=== PATIENT | female | born 1985 | race Caucasian/White ===

== ENCOUNTER 2018-01-24 14:29 | Outpatient (CLI) | payer BC ==
--- NOTE | 2018-01-24 15:53 | ULT ---
PELVIC ULTRASOUND: 01/24/18 COMPARISON: None. HISTORY: Vaginal bleeding. TECHNIQUE: Multiplanar rico scale and color doppler images were obtained in a transabdominal and transvaginal pe lvic ultrasound. Spectral analysis of the doppler waveforms of the ovaries were performed. FINDINGS: There appears to be a gestational sac within a retroverted uterus. This contains a pole with cr own-rump length of 0.48 cm. This estimates gestational age at 6 weeks, 1 day. A heart rate was also detected at 122 beats per minute. There is a small amount of free fluid in the cul-de-sac. Both ovaries are normal in size and appearan ce and demonstrate normal internal flow. A corpus luteum is seen in the left ovary measuring 2.2 cm i n size. IMPRESSION: Single live intrauterine with estimated age of 6 weeks, 1 day. POS: [facility]
== END 2018-01-24 14:30 | disposition home or self-care (01) ==
LOC: ULT 14:29
DX: N93.9 Abnormal uterine and vaginal bleeding, unspecified (principal); Z3A.01 Less than 8 weeks gestation of pregnancy
CPT/HCPCS: 76856

== ENCOUNTER 2023-05-30 09:56 | Outpatient (CLI) | payer OTHER | END 2023-05-30 09:57 | disposition home or self-care (01) | LOC: BICMAMMO 09:56 | PROVIDERS: ATTEND Obstetrics & Gynecology | DX: N63.10 Unspecified lump in the right breast, unspecified quadrant (principal) | CPT/HCPCS: 77066; G0279 ==

== ENCOUNTER 2024-03-24 11:27 | Emergency (ER) | payer OTHER ==
[~2024-03-24 11:27] MED LIST: Iopamidol-370 76% 500 ML MDV (1 ML CHARGE) ONE
[2024-03-24 12:32] LABS: #Basophils 0.03 10x3/uL (0.0-0.2); %Basophils 0.3 % (0.0-1.0); %Eosinophils 1.1 % (0.0-10.0); %Lymphocytes 14.6 % (21.0-51.0); %Monocytes 3.8 % (0.0-10.0); %Neutrophils 79.9 % (42.0-75.0); Hematocrit 42.3 % (36.0-47.0); Hemoglobin 14.5 g/dL (12.0-16.0); Mean Corpuscular HGB CONC 34.3 g/dL (32.0-36.0); Mean Corpuscular Hemoglobin 30.5 pg (27.0-31.0); Mean Corpuscular Volume 89.1 fL (78.0-98.0); Mean Platelet Volume 8.7 fL (7.4-10.4); Platelet Count 306 10x3/uL (130-400); RBC Distribution Width 11.3 % (11.5-14.5); Red Blood Cell (RBC) Count 4.75 mill/uL (4.20-5.40)
[2024-03-24 12:47] LABS: BHCG - Serum Negative (NEGATIVE); Pregs Control Background? CLEAR/WHITE (CLR/WHITE); Pregs Control Bar Appear? YES (CONTROL BAR)
[2024-03-24 12:56] LABS: ALT (SGPT) 13 U/L (8-55); AST (SGOT) 14 U/L (5-34); Albumin 4.5 g/dL (3.5-5.0); Alkaline Phosphatase 37 U/L (40-110); Anion Gap 14 mmol/L (10-20); BUN (Urea Nitrogen) 16 mg/dL (7.0-18.7); Bilirubin, Total 0.8 mg/dL (0.2-1.2); Calc. Creatinine Clearance 0 mL/min (70-130); Calcium 9.8 mg/dL (7.8-10.44); Carbon Dioxide 25 mmol/L (22-29); Chloride 101 mmol/L (98-107); Estimated GFR 76; Globulin 2.7 g/dL (2.4-3.5); Glucose 96 mg/dL (70-105); Protein, Total 7.2 g/dL (6.0-8.3); Sodium 136 mmol/L (136-145)
[2024-03-24 12:59] LABS: Troponin I Less than 0.010 ng/mL (< 0.028)
[2024-03-24 13:11] LABS: Bilirubin Negative (Negative); Blood, Urine Negative (Negative); CAUTI Indications for Culture Pregnancy; Clarity Clear (Clear); Glucose, Urine (Dipstick) Normal (Negative); Ketone, Urine Negative (Negative); Leukocyte Negative Leu/uL (Negative); Nitrite Negative (Negative); Protein, Urine (Dipstick) Negative (Neg-Trace); RBC/HPF None Seen HPF (0-3); Specific Gravity, Urine 1.007 (1.002-1.036); Squamous Epithelial 0-3 HPF (0-3); Urobilinogen Normal mg/dL (Less than 2); WBC/HPF 0-3 HPF (0-3); pH, Urine 6.5 (5.0-9.0)
[2024-03-24 13:19] LABS: Bacteria/HPF Rare-Few HPF (None Seen)
[2024-03-24 13:21] LABS: Urine Culture Reflex Yes Yes
[2024-03-24 14:57] LABS: Troponin I Less than 0.010 ng/mL (< 0.028)
== END 2024-03-24 15:50 | disposition home or self-care (01) ==
LOC: ERS 11:27
DX: R00.2 Palpitations (principal); Z55.0 Illiteracy and low-level literacy
CPT/HCPCS: 36415; 71045; 71275; 80053; 81001; 84443; 84484; 84703; 85025; 87086; 93005; Q9967